=== PATIENT | female | born 1965 | race Caucasian/White ===

== ENCOUNTER → 2016-09-25 | Outpatient (CLI) | payer OTHER | LOC: FIMAGING 16:12 | DX: Z12.31 Encounter for screening mammogram for malignant neoplasm of breast (principal) | CPT/HCPCS: G0202 ==

== ENCOUNTER → 2017-10-20 | Outpatient (CLI) | payer OTHER | LOC: FIMAGING 16:18 | PROVIDERS: ATTEND Physician Assistant | DX: Z12.31 Encounter for screening mammogram for malignant neoplasm of breast (principal); Z80.3 Family history of malignant neoplasm of breast ==

== ENCOUNTER 2018-09-21 13:43 | Observation (INO) | payer OTHER ==
[2018-09-21] MEDS ORDERED: NS 1,000 ML IV ONE ×2 (14:00→18:02)
[2018-09-21 14:13] LABS: PLATELET COUNT 257 10^3/uL (150-400)
--- NOTE | 2018-09-21 14:24 | EDPHY ---
H & P Stated Complaint: Syncope, epigastric pain, vomiting Time Seen by Provider: 09/21/18 13:59 HPI/ROS: CHIEF COMPLAINT: Syncope, abdominal pain, vomiting HISTORY OF PRESENT ILLNESS: The patient presents the ED after she developed nausea and vomiting which precipitated a syncopal episode at work. The patient did have some antecedent epigastric discomfort. She did have some vague antecedent today shins. Patient reports that she has been taking meloxicam since June for a labral tear. The patient denies any melena or hematemesis. The patient has no prior history of syncope. She does have a high calcium score and a significant family history of coronary artery disease. The patient denies any exertional chest pain or shortness of breath. Patient currently states that she is feeling better. She was brought in by paramedics having received IV fluids. REVIEW OF SYSTEMS: A comprehensive 10 point review of systems is otherwise negative aside from elements mentioned in the history of present illness. Source: Patient Exam Limitations: No limitations - Personal History LMP (Females 10-55): Hysterectomy Current Tetanus Diphtheria and Acellular Pertussis (TDAP): Yes - Medical/Surgical History Hx Asthma: No Hx Chronic Respiratory Disease: No Hx Diabetes: No Hx Cardiac Disease: No Hx Renal Disease: No Hx Cirrhosis: No Hx Alcoholism: No Hx HIV/AIDS: No Hx Splenectomy or Spleen Trauma: No Other PMH: Hysterectomy, depression - Social History Smoking Status: Never smoked - Physical Exam Exam: General Appearance: Alert, no distress Eyes: Pupils equal and round no pallor or injection ENT, Mouth: Mucous membranes moist Respiratory: There are no retractions, lungs are clear to auscultation Cardiovascular: Regular rate and rhythm Gastrointestinal: Minimal epigastric tenderness, no peritoneal signs, normal bowel sounds Neurological: A&O, normal motor function, normal sensory exam, normal cranial nerves Skin: Warm and dry, no rashes Musculoskeletal: Neck is supple nontender Extremities: symmetrical, full range of motion Psychiatric: Patient is oriented X 3, there is no agitation Constitutional: Initial Vital Signs Temperature (C) 36.8 C 09/21/18 13:50 Heart Rate 78 09/21/18 13:50 Respiratory Rate 16 09/21/18 13:50 Blood Pressure 117/83 H 09/21/18 13:50 O2 Sat (%) 99 09/21/18 13:50 O2 Delivery Mode Room Air Allergies/Adverse Reactions: hydrocodone Allergy (Verified 10/17/13 23:16) Home Medications: Medication Instructions Recorded Escitalopram Oxalate [Lexapro 10 10/17/13 MG (RX)] Estrogen,Con/M-Progest Acet 10/17/13 [Prempro 0.3 mg-1.5 mg Tablet] Medical Decision Making - Diagnostics EKG Interpretation: EKG: Complete interpretation has been separately recorded in the [facility] archive. Summary impression: Sinus rhythm, no ischemic changes noted ED Course/Re-evaluation: Patient presents to the ED after a presyncopal episode in the setting of vomiting. Patient is in no acute distress upon arrival. She had minimal epigastric tenderness. Her EKG demonstrated no evidence of arrhythmia. Her troponin is normal. Laboratory testing does demonstrate mild anemia. The patient did have a elevated BUN consistent with dehydration. The patient is not had any symptoms of melena. The patient has no additional acute complaints or findings. The patient had an IV established. She received a L of normal saline. I re-evaluated the patient at 5:15 p.m.. She is feeling better. Her abdominal examination is benign. Patient has been informed that she is slightly anemic. She will follow up with her primary care provider for a repeat CBC in the coming weeks. She has been told to be on the lookout the development of any melanotic stool. Patient is also been advised to stop taking NSAIDs and begin taking Tylenol. Patient will be discharged home with a prescription for Zofran. She is given customary aftercare instructions and return precautions. Differential Diagnosis: Differential diagnosis considered includes vasovagal episode, peptic ulcer disease, dehydration, critical anemia, metabolic derangement - Data Points Laboratory Results: Laboratory Results 09/21/18 13:45 09/21/18 13:45 09/21/18 09/21/18 09/21/18 13:45 13:45 13:45 WBC 7.50 10^3/uL 10^3/uL (3.80-9.50) RBC 3.61 10^6/uL L 10^6/uL (4.18-5.33) Hgb 11.6 g/dL L g/dL (12.6-16.3) Hct 34.5 % L % (38.0-47.0) MCV 95.6 fL fL (81.5-99.8) MCH 32.1 pg pg (27.9-34.1) MCHC 33.6 g/dL g/dL (32.4-36.7) RDW 11.9 % % (11.5-15.2) Plt Count 257 10^3/uL 10^3/uL (150-400) MPV 9.6 fL fL (8.7-11.7) Neut % (Auto) 53.2 % % (39.3-74.2) Lymph % (Auto) 38.0 % % (15.0-45.0) [place] % (Auto) 6.3 % % (4.5-13.0) Eos % (Auto) 1.7 % % (0.6-7.6) Baso % (Auto) 0.5 % % (0.3-1.7) Nucleat RBC Rel Count 0.0 % % (0.0-0.2) Absolute Neuts (auto) 3.99 10^3/uL 10^3/uL (1.70-6.50) Absolute Lymphs (auto) 2.85 10^3/uL 10^3/uL (1.00-3.00) Absolute Monos (auto) 0.47 10^3/uL 10^3/uL (0.30-0.80) Absolute Eos (auto) 0.13 10^3/uL 10^3/uL (0.03-0.40) Absolute Basos (auto) 0.04 10^3/uL 10^3/uL (0.02-0.10) Absolute Nucleated RBC 0.00 10^3/uL 10^3/uL (0-0.01) Immature Gran % 0.3 % % (0.0-1.1) Immature Gran # 0.02 10^3/uL 10^3/uL (0.00-0.10) Sodium 137 mEq/L mEq/L (135-145) Potassium 4.0 mEq/L mEq/L (3.5-5.2) Chloride 104 mEq/L mEq/L (97-110) Carbon Dioxide 25 mEq/l mEq/l (22-31) Anion Gap 8 mEq/L mEq/L (6-14) BUN 31 mg/dL H mg/dL (7-23) Creatinine 0.7 mg/dL mg/dL (0.6-1.0) Estimated GFR > 60 Glucose 167 mg/dL H mg/dL (70-100) Calcium 8.6 mg/dL mg/dL (8.5-10.4) Total Bilirubin 0.3 mg/dL mg/dL (0.1-1.4) Conjugated Bilirubin 0.3 mg/dL mg/dL (0.0-0.5) Unconjugated Bilirubin 0.0 mg/dL mg/dL (0.0-1.1) AST 20 IU/L IU/L (14-46) ALT 19 IU/L IU/L (9-52) Alkaline Phosphatase 75 IU/L IU/L (38-126) Troponin I < 0.012 ng/mL ng/mL (0.000-0.034) Total Protein 6.2 g/dL L g/dL (6.3-8.2) Albumin 3.8 g/dL g/dL (3.5-5.0) Lipase 121 IU/L IU/L (23-300) Medications Given: Discontinued Medications Sodium Chloride (Ns) 1,000 mls @ 0 mls/hr IV EDNOW ONE; Wide Open PRN Reason: Protocol Stop: 09/21/18 14:01 Last Admin: 09/21/18 14:37 Dose: 1,000 mls Departure - Departure Disposition: Home, Routine, Self-Care Clinical Impression: Vasovagal syncopes, Vomiting, Anemia Condition: Good Instructions: Syncope (ED) Additional Instructions: 1. Zofran as needed for nausea. 2. Please have your blood count recheck with your primary care provider in the next 1-2 weeks. Return to the ED for any vomiting of blood, black or tarry stools. I do recommend stopping meloxicam beginning Tylenol. 3. Return to the emergency department for any worsening abdominal pain, recurrent passing out, uncontrolled vomiting or other concerns. Referrals: Lroi Pierre PA [Primary Care Provider] - As per Instructions
--- NOTE | 2018-09-21 14:53 | CPEKG ---
Test Reason : OPEN Blood Pressure : / mmHG Vent. Rate : 081 BPM Atrial Rate : 080 BPM P-R Int : 143 ms QRS Dur : 077 ms QT Int : 403 ms P-R-T Axes : 053 084 064 degrees QTc Int : 468 ms Sinus rhythm Confirmed by Gennaro Vaughan ([id number]) on 09/21/2018 2:52:47 PM Referred By: Gennaro Vaughan Confirmed By:Gennaro Vaughan
[2018-09-21 18:27] LABS: PLATELET COUNT 210 10^3/uL (150-400)
[2018-09-21] MEDS ORDERED: PANTOPRAZOLE SODIUM 40 MG VIAL IVP ONE (19:15)
[2018-09-21] MEDS ORDERED: ACETAMINOPHEN 325 MG TAB PO PRN (20:24)
[2018-09-21] MEDS ORDERED: ONDANSETRON 4 MG/2 ML VIAL IVP PRN (20:24)
[2018-09-21] MEDS ORDERED: ONDANSETRON DISINTEGRATING 4 MG TAB PO PRN (20:24)
--- NOTE | 2018-09-21 20:24 | PDGENHP ---
History and Physical - Chief Complaint Epigastric pain, nausea, syncope - History of Present Illness Leidy Moreno is a 53 yo F with a PMHx of anxiety who presents to ED for epigastric pain, nausea, and presyncope. She reports that over the past weekend she was experiencing a "sour stomach" which she described as a mild discomfort that would come and go. It was not associated with nausea or vomiting. She was at work today when she had an episode of nausea and vomiting then experienced a presyncopal episode. She describes the episode as feeling so lightheaded she collapsed but did not lose consciousness. She also had epigastric discomfort at that time. She denies any melena or hematemesis as well as chest pain, SOB, headache, d/c, f/c, edema. Patient was going to be discharged from ED when she had a another episode of epigastric pain, nausea, and presyncope. History Information - Allergies/Home Medication List Allergies/Adverse Reactions: hydrocodone Allergy (Verified 10/17/13 23:16) Home Medications: Escitalopram Oxalate [Lexapro 10 MG (RX)] 10 mg PO DAILY 10/17/13 [Last Taken 11:00] Aspirin EC [Aspirin EC 81 mg (*)] 81 mg PO HS 09/21/18 [Last Taken 09/20/18] Herbals/Supplements -Info Only 1 ea PO BID 09/21/18 [Last Taken 09/20/18] Meloxicam 15 mg PO DAILY 09/21/18 [Last Taken 09/21/18 11:00] Niacin [Niacin 500 mg (*)] 500 mg PO HS 09/21/18 [Last Taken 09/20/18] clonazePAM [Klonopin (*)] 0.25 mg PO DAILY PRN 09/21/18 [Last Taken 09/21/18] I have personally reviewed and updated: family history, medical history, social history, surgical history - Past Medical History psychiatric history - Surgical History Reports: no pertinent surgical hx - Family History Positive for: CAD - Social History Smoking Status: Never smoked Review of Systems Review of Systems: ROS: 10pt was reviewed & negative except for what was stated in HPI & below Physical Exam Physical Exam: Temp Pulse Resp BP Pulse Ox 36.2 C 95 18 134/87 H 97 09/21/18 15:28 09/21/18 18:47 02/20/19 18:47 09/21/18 18:47 09/21/18 18:47 Constitutional: no apparent distress Eyes: PERRL Ears, Nose, Mouth, Throat: moist mucous membranes Cardiovascular: regular rate and rhythym Respiratory: no respiratory distress Gastrointestinal: soft, non-tender abdomen Skin: warm Musculoskeletal: full muscle strength Neurologic: AAOx3 Psychiatric: interacting appropriately Lab Data & Imaging Review 09/21/18 18:02 09/21/18 13:45 WBC 6.71 10^3/uL (3.80-9.50) 09/21/18 18:02 RBC 3.32 10^6/uL (4.18-5.33) L 09/21/18 18:02 Hgb 10.4 g/dL (12.6-16.3) L 09/21/18 18:02 Hct 30.6 % (38.0-47.0) L 09/21/18 18:02 MCV 92.2 fL (81.5-99.8) 09/21/18 18:02 MCH 31.3 pg (27.9-34.1) 09/21/18 18:02 MCHC 34.0 g/dL (32.4-36.7) 09/21/18 18:02 RDW 12.0 % (11.5-15.2) 09/21/18 18:02 Plt Count 210 10^3/uL (150-400) 09/21/18 18:02 MPV 9.2 fL (8.7-11.7) 09/21/18 18:02 Neut % (Auto) 71.5 % (39.3-74.2) 09/21/18 18:02 Lymph % (Auto) 24.9 % (15.0-45.0) 09/21/18 18:02 [place] % (Auto) 3.0 % (4.5-13.0) L 09/21/18 18:02 Eos % (Auto) 0.1 % (0.6-7.6) L 09/21/18 18:02 Baso % (Auto) 0.4 % (0.3-1.7) 09/21/18 18:02 Nucleat RBC Rel Count 0.0 % (0.0-0.2) 09/21/18 18:02 Absolute Neuts (auto) 4.79 10^3/uL (1.70-6.50) 09/21/18 18:02 Absolute Lymphs (auto) 1.67 10^3/uL (1.00-3.00) 09/21/18 18:02 Absolute Monos (auto) 0.20 10^3/uL (0.30-0.80) L 09/21/18 18:02 Absolute Eos (auto) 0.01 10^3/uL (0.03-0.40) L 09/21/18 18:02 Absolute Basos (auto) 0.03 10^3/uL (0.02-0.10) 09/21/18 18:02 Absolute Nucleated RBC 0.00 10^3/uL (0-0.01) 09/21/18 18:02 Immature Gran % 0.1 % (0.0-1.1) 09/21/18 18:02 Immature Gran # 0.01 10^3/uL (0.00-0.10) 09/21/18 18:02 Sodium 137 mEq/L (135-145) 09/21/18 13:45 Potassium 4.0 mEq/L (3.5-5.2) 09/21/18 13:45 Chloride 104 mEq/L (97-110) 09/21/18 13:45 Carbon Dioxide 25 mEq/l (22-31) 09/21/18 13:45 Anion Gap 8 mEq/L (6-14) 09/21/18 13:45 BUN 31 mg/dL (7-23) H 09/21/18 13:45 Creatinine 0.7 mg/dL (0.6-1.0) 09/21/18 13:45 Estimated GFR > 60 09/21/18 13:45 Glucose 167 mg/dL (70-100) H 09/21/18 13:45 Calcium 8.6 mg/dL (8.5-10.4) 09/21/18 13:45 Total Bilirubin 0.3 mg/dL (0.1-1.4) 09/21/18 13:45 Conjugated Bilirubin 0.3 mg/dL (0.0-0.5) 09/21/18 13:45 Unconjugated Bilirubin 0.0 mg/dL (0.0-1.1) 09/21/18 13:45 AST 20 IU/L (14-46) 09/21/18 13:45 ALT 19 IU/L (9-52) 09/21/18 13:45 Alkaline Phosphatase 75 IU/L (38-126) 09/21/18 13:45 Troponin I < 0.012 ng/mL (0.000-0.034) 09/21/18 13:45 Total Protein 6.2 g/dL (6.3-8.2) L 09/21/18 13:45 Albumin 3.8 g/dL (3.5-5.0) 09/21/18 13:45 Lipase 121 IU/L (23-300) 09/21/18 13:45 Stool Occult Bld Scrn POSITIVE (NEGATIVE) H 09/21/18 19:00 Assessment & Plan Assessment: UGIB - Presenting with epigastric pain, nausea, presyncope - No hematemesis, melena, or hematochezia - Has been taking Meloxicam for labral tear - Occult stool is heme positive on admission - Hgb 11.6, decreased to 10.4 since admission, no baseline known - IV PPI started, will continue Pantoprazole 40 mg IV BID - Continue to monitor H/H - GI consulted in ED, will see in the AM for possible EGD Anemia (Acute) - In setting of GIB, management as above - Will check Fe studies, B12/Folate to further evaluate - Continue to monitor, transfuse H/H <7/20 Preyncope (Acute) - In setting of above - S/p IVF in ED - Will continue to monitor on telemetry Depression - Continue home Lexapro and Klonopin FEN: IVF, NPO after midnight DVT PPx: Holding in setting of possible GIB Code: FULL Dispo: Admit to Observation
[2018-09-21] MEDS ORDERED: clonazePAM 0.5 MG TAB PO PRN (20:34)
[2018-09-21] MEDS ORDERED: PANTOPRAZOLE SODIUM 40 MG VIAL IVP SCH (21:00)
[2018-09-21] MEDS ORDERED: ASPIRIN EC 81 MG TAB PO SCH (21:00)
[2018-09-21] MEDS: NIACIN 500 MG TAB PO SCH (22:51)
[2018-09-22 05:41] LABS: PLATELET COUNT 193 10^3/uL (150-400)
[2018-09-22] MEDS ORDERED: NS 1,000 ML IV SCH (06:15)
[2018-09-22] MEDS ORDERED: NS 500 ML IV ONE (06:15)
--- NOTE | 2018-09-22 07:09 | PDCONSULT ---
Underpresser Hand Note: [email or web address] p: f: REFERRING PHYSICIAN: I was asked to see the patient in consultation by Dr. James Kumar for a chief complaint of hematemesis, iron deficiency anemia. HISTORY OF PRESENT ILLNESS: Leidy Moreno is a 53 year old female with a history of anxiety who presented to the [facility] emergency department for epigastric pain, nausea and presyncope on 09/21/2018. She developed an episode of nausea and vomiting and then experienced dizziness. She felt very lightheaded but she did not lose consciousness. She also started to have epigastric pain as well. The emesis that she had is described as dark and coffee-ground. She still feels faint this morning. She has been taking meloxicam for a right labrum tear. No further vomiting. She denies melena, bright red blood in stool, vaginal or urinary bleeding.She has never had a screening colonoscopy. PAST MEDICAL HISTORY: Depression, Anxiety, history of vasovagal syncope, new diagnosis of iron deficiency anemia, vomiting PAST SURGICAL HISTORY: None HOME MEDICATIONS: Aspirin 81 mg daily, meloxicam 15 mg by mouth daily, herbals twice a day, Lexapro 10 mg by mouth daily, niacin 500 mg by mouth daily at bedtime, clonazepam 0.25 mg by mouth daily, O transit time 4 mg by mouth every 4 when necessary INPATIENT MEDICATIONS: Tylenol 650 by mouth every 4 when necessary, clonazepam 0.25 mg by mouth daily when necessary, escitalopram 10 mg by mouth daily, niacin 500 mg by mouth daily at bedtime, pantoprazole 40 mg IV twice a day ALLERGIES: Hydrocodone FAMILY HISTORY: No family history of peptic ulcer bleeding SOCIAL HISTORY Non smoker No Alcohol use ROS I have performed a comprehensive review of systems, which is negative except for pertinent positives and/or pertinent negatives as noted above in the HPI Physical exam: Vitals 0400 36.9 HR 104 BP 90/49 RR 16 94% on RA CONSTITUTIONAL: alert, unwell appearing, in no distress MENTAL STATUS: alert, oriented to person, place and time PSYCH: mood appropriate for affect EYES: pupils equal and reactive extra ocular eye movements intact EARS: right and left ear normal NOSE: normal and patent, no erythema, discharge or polyps MOUTH: mucous membranes moist, pharynx normal without lesions, Mallampati I HEAD: normal NECK: supple, no significant adenopatchy CHEST: clear to auscultation, no wheezes, rales or rhonchi, symmetric air entry CARDIOVASCULAR: normal rate, regular rhythm, normal S1,S2, no murmurs, rubs, clicks or gallops GASTROINTESTINAL: soft, non tender, non distended, no masses or organomegaly NEUROLOGICAL: alert, oriented, normal speech, no focal findings or movement disorder noted. No asterixis. MUSCULOSKELETAL: no joint tenderness, deformity or swelling SKIN: normal coloration and turgor, no rashes, no suspicious skin lesions CURRENT DATA: LABS: 09/21/2018 CBC: WBC 6.7 Hgb 10 platelets 210 Iron saturation 12%, ferritin 24 Positive occult stool B12 242 Folate 19.23 Date 09/22/2018 WBC 8.4 hemoglobin 9.6 platelets 193 ASSESSMENT: Leidy Moreno is a 53 year old female with a history of anxiety who presents with coffee ground emesis and iron deficiency anemia. Likely this represents an upper gastrointestinal bleed from esophagitis/gastritis/duodenitis , peptic ulcer disease, H. pylori infection, Crohn's disease. Clinical history and labs do not support a portal hypertension because of this upper gastrointestinal bleed. Iron deficiency anemia may need to be investigated further with a colonoscopy if there is no source of bleeding on the upper endoscopy today. RECOMMENDATIONS: -Keep patient NPO. Ensure large bore IV access. -Monitor H/H for now and transfuse per protocol -PPI IV BID okay for now -Will plan on urgent endoscopy, further recommendations to follow. -Thank you for this consultation Sincerely, Peri Leonard MD [facility]
--- NOTE | 2018-09-22 08:07 | CPEKG ---
Test Reason : OPEN Blood Pressure : / mmHG Vent. Rate : 087 BPM Atrial Rate : 087 BPM P-R Int : 146 ms QRS Dur : 084 ms QT Int : 370 ms P-R-T Axes : 081 087 -02 degrees QTc Int : 445 ms Sinus rhythm Confirmed by Jimmie Sheth ([id number]) on 09/22/2018 8:07:29 AM Referred By: James Kumar Confirmed By:Jimmie Sheth
[2018-09-22] MEDS ORDERED: LR 1,000 ML IV ONE (08:08)
--- NOTE | 2018-09-22 08:08 | PDANEPAE ---
ANE Past Medical History - Cardiovascular History Hx Hypertension: No Hx Arrhythmias: No Cardiovascular History Comment: Strong Family History of CT. She had a high calcium score on a scan. But they decided a Stress test was not warrented because she is an active runner. - Pulmonary History Hx COPD: No Hx Asthma/Reactive Airway Disease: No Hx Oxygen in Use at Home: No Hx Sleep Apnea: No - Endocrine History Hx Diabetes: No Hypothyroid: No - Renal History Hx Renal Disorders: No - Liver History Hx Hepatic Disorders: No - Neurological & Psychiatric Hx Hx Neurological and Psychiatric Disorders: Yes Neurological / Psychiatric History Comment: Anxiety - Congenital Disorder History Hx Congenital Disorders: No - GI History Hx Gastrointestinal Disorders: Yes Gastrointestinal History Comment: epigastric pain with coffee ground emesis. HGB around 9-10 - Chronic Pain History Chronic Pain: No - Surgical History Prior Surgeries: Animal [employer] Surgeries. Hysterectomy ANE Review of Systems Review of Systems: ANE Patient History - Allergies Allergies/Adverse Reactions: hydrocodone Allergy (Verified 10/17/13 23:16) - Home Medications Home Medications: Escitalopram Oxalate [Lexapro 10 MG (RX)] 10 mg PO DAILY 10/17/13 [Last Taken 11:00] Aspirin EC [Aspirin EC 81 mg (*)] 81 mg PO HS 09/21/18 [Last Taken 09/20/18] Herbals/Supplements -Info Only 1 ea PO BID 09/21/18 [Last Taken 09/20/18] Meloxicam 15 mg PO DAILY 09/21/18 [Last Taken 09/21/18 11:00] Niacin [Niacin 500 mg (*)] 500 mg PO HS 09/21/18 [Last Taken 09/20/18] clonazePAM [Klonopin (*)] 0.25 mg PO DAILY PRN 09/21/18 [Last Taken 09/21/18] - Smoking Hx Smoking Status: Never smoked ANE Labs/Vital Signs - Labs Result Diagrams: 09/22/18 05:16 09/22/18 05:16 - Vital Signs Blood Pressure: 90/49 Heart Rate: 104 Respiratory Rate: 16 O2 Sat (%): 94 Height: 162.56 cm Weight: 61.235 kg ANE Physical Exam - Airway Neck exam: FROM Mallampati Score: Class 2 Mouth exam: normal dental/mouth exam - Pulmonary Pulmonary: no respiratory distress, no rales or rhonchi, clear to auscultation - Cardiovascular Cardiovascular: regular rate and rhythym, no murmur, rub, or gallop - ASA Status ASA Status: III ANE Anesthesia Plan Anesthesia Plan: GA with mask Total IV Anesthesia: Yes
--- NOTE | 2018-09-22 08:08 | POSTANESTH ---
Post Anesthetic Evaluation Cardiovascular Status: Normal, Stable Respiratory Status: Normal, Stable Level of Consciousness/Mental Status: Can Participate in Eval Pain Control: Adequate, Prn Tx Ordered Nausea/Vomiting Control: Adequate, Prn Tx Ordered Complications Possibly Related to Anesthesia: None Noted
[2018-09-22] MEDS ORDERED: LIDOCAINE 2% 5 ML SDV ONE (08:43)
[2018-09-22] MEDS ORDERED: PROPOFOL/EMULSION 500 MG/50 ML BOTTLE IV ONE (08:43)
--- NOTE | 2018-09-22 09:02 | PDGENHP ---
History & Physical Chief Complaint: iron deficiency anemia, hematemesis History of Present Illness: 53 year old NSAID use presenting with anemia, ASA II , Mallampati 1 Relevant Physical Exam: Alert and oriented x 3, Skin pale, Abdomen soft non tender Cardiorespiratory Assessment: RRR, CTAB
--- NOTE | 2018-09-22 09:09 | GIREPORT ---
[facility] - Endoscopy Department Patient Name: Leidy Moreno Procedure Date: 09/22/2018 7:13 AM Patient Type: Inpatient Attending MD/ ER Physician: Peri Leonard MD Procedure: Upper GI endoscopy Indications: Iron deficiency anemia, Hematemesis Patient Profile: Right hip labrum tear on Meloxicam. Providers: Peri Leonard MD Medicines: Monitored Anesthesia Care Complications: No immediate complications. Description of Procedure: After obtaining informed consent, the endoscope was passed under direct vision. Throughout the procedure, the patient's blood pressure, pulse, and oxygen saturations were monitored continuously. The Endoscope was intro duced through the mouth, and advanced to the second part of duodenum. The [facility] er GI endoscopy was accomplished without difficulty. The patient tolerated th e procedure well. Findings: The examined esophagus was normal. Diffuse moderate inflammation characterized by erosions and erythema wa s found in the entire examined stomach. Biopsies were taken with a cold forceps for histology. Estimated blood loss was minimal. One non-bleeding cratered gastric ulcer with no stigmata of bleeding wa s found in the gastric antrum. The lesion was 5 mm in largest dimension. One non-bleeding cratered duodenal ulcer with no stigmata of bleeding w as found in the duodenal bulb. The lesion was 8 mm in largest dimension. The first portion of the duodenum and second portion of the duodenum we re normal. Biopsies for histology were taken with a cold forceps for evalu ation of celiac disease. Estimated blood loss was minimal. Estimated Blood Loss: Estimated blood loss was minimal. Post Op Diagnosis: - Normal esophagus. - Gastritis. Biopsied. - Non-bleeding gastric ulcer with no stigmata of bleeding. - One non-bleeding duodenal ulcer with no stigmata of bleeding. - Normal first portion of the duodenum and second portion of the duoden um. Biopsied. Recommendation: - [facility]. - Advance diet as tolerated. - May require inpatient iron supplementation (IV) to help with dizzines s and fainting symptoms. - Stop aspirin and NSAID for now. - Use a proton pump inhibitor PO BID for 12 weeks then daily if continu es to use NSAIDs. - Await results of biopsies for H pylori and Celiac disease. - Repeat upper endoscopy in 12 weeks to check healing. Chad for ASC pro pofol at our endoscopy center. - Also advise screening colonoscopy when has repeat endoscopy in 12 wee ks. [facility] for ASC propofol at our endoscopy center. - Thank you for allowing me to participate in the care of this patient. Attending Participation: I personally performed the entire procedure. Peri Leonard MD Peri Leonard MD 09/22/2018 9:08:40 AM This report has been signed electronicallyPeri Leonard MD Number of Addenda: 0 Note Initiated On: 09/22/2018 7:13 AM [email or web address]}
[2018-09-22] MEDS ORDERED: PROMETHAZINE HCL 25 MG/ML INJ IVP PRN (09:10)
[2018-09-22] MEDS ORDERED: LR 500 ML IV PRN (09:10)
[2018-09-22] MEDS ORDERED: NALOXONE HCL 0.4 MG/ML INJ IVP PRN (09:10)
[2018-09-22] MEDS ORDERED: fentaNYL 100 MCG/2 ML INJ IVP PRN (09:10)
[2018-09-22] MEDS ORDERED: NS 500 ML IV PRN (09:10)
[2018-09-22] MEDS ORDERED: ONDANSETRON 4 MG/2 ML VIAL IVP PRN (09:10)
--- NOTE | 2018-09-22 09:26 | ASMTCMCOM ---
CM Note CM Note Notes: Patient admitted with abd pain and syncopal episode admitted to r/o UGIB. She is s/p upper endoscopy today. GI following. Patient is normally independent and employed. She lives alone. I don't anticipate any d/c needs. CM available if this changes. Current CM Discharge plan: home independent Date Signed: 09/22/2018 09:25 AM Electronically Signed By:Shelby Ly RN
[2018-09-22] MEDS: ESCITALOPRAM OXALATE 10 MG TAB PO SCH (10:02)
[2018-09-22] MEDS: PANTOPRAZOLE SODIUM 40 MG VIAL IVP SCH ×2 (10:03→20:05)
--- NOTE | 2018-09-22 14:23 | HOSPPROG ---
Hospitalist Progress Note Assessment/Plan: #UGIB -Endoscopy with no active bleeding. Was consistent with Gastritis and Duodenal Ulcer with recent bleeding #Gastritis, Duodenal Ulcer #Acute blood loss anemia #Iron deficiency anemia #Generalized Weakness #Presyncope likely due to anemia Plan: Transfuse 1 unit advance diet PPI BID Serial H/H to ensure no further bleeding monitor overnight IV iron replacement No Aspirin or NSAIDs for a few weeks Subjective: still feels weak. no emesis or reported ongoing bleeding. Objective: Vital Signs Temp Pulse Resp BP Pulse Ox 37.1 C 88 14 99/65 L 96 09/22/18 11:49 09/22/18 11:49 09/22/18 11:49 09/22/18 11:49 09/22/18 11:49 Laboratory Results 09/22/18 11:46 09/22/18 05:16 09/21/18 09/22/18 09/23/18 05:59 05:59 05:59 Intake Total 2900 600 Output Total 0 Balance 2900 600 - Physical Exam Constitutional: no apparent distress Eyes: PERRL Ears, Nose, Mouth, Throat: moist mucous membranes, hearing normal Cardiovascular: regular rate and rhythym, no murmur, rub, or gallop Respiratory: no respiratory distress Gastrointestinal: normoactive bowel sounds, soft, non-tender abdomen Genitourinary: no bladder fullness Skin: warm Neurologic: AAOx3 Psychiatric: interacting appropriately, not anxious, not encephalopathic Lymph, Heme, Immunologic: No petechiae ICD10 Worksheet Patient Problems: Problems Problem Status Onset Anemia Acute Vasovagal syncopes Acute Vomiting Acute
[2018-09-22] MEDS ORDERED: SODIUM FERRIC GLUCONAT/SUCROSE 125 MG in NS 100 ML IV SCH ×2 (14:30→15:00)
--- NOTE | 2018-09-22 15:14 | PDMN ---
Medical Necessity Medical necessity: [facility] anemia, iron deficiency or unspecified - pt presents with epigastric pain, N/ presyncope, dizziness, hematemesis, - + stool occult bld- pt had endoscopy , with H/H dropping ( 11.6 / 34.5 down to 8.7/ 26.2) , further monitoring and tx- one unit PRBC given- IV iron, pt still with gen. weakness, status changed to INPT 09/22/18
[2018-09-22] MEDS: NIACIN 500 MG TAB PO SCH (20:05)
[2018-09-23] MEDS: ESCITALOPRAM OXALATE 10 MG TAB PO SCH (08:43)
[2018-09-23] MEDS: PANTOPRAZOLE SODIUM 40 MG VIAL IVP SCH (08:48)
--- NOTE | 2018-09-23 09:32 | SOAPPROG ---
SOAP Progress Note Assessment/Plan: Assessment:53-year-old female taking aspirin and NSAID presenting with an upper GI bleed from a gastric ulcer and a duodenal ulcer. She is status post endoscopically without intervention given clean-based ulcers. She was having significant anemia related symptoms and received a blood transfusion yesterday with improvement in the symptoms. Plan: 1.Advance diet as tolerated 2.PPI twice a day for the next 12 weeks and then daily 3.Repeat ASC endoscopy with Dr. Leonard in 12 weeks to assess for healing 4.We will call patient with biopsies performed 5.Okay to discharge to home Thank you for this consultation, Peri Leonard MD 09/23/18 09:31 Subjective: melenic stool last night, Hgb stable after transfusion, no nauseated or dizzi, belly feel sore Objective: Vital Signs Temp Pulse Resp BP Pulse Ox 36.9 C 94 15 109/74 94 09/23/18 07:51 09/23/18 08:34 09/23/18 07:51 09/23/18 08:34 09/23/18 07:51 Laboratory Results 09/23/18 04:40 09/22/18 09/23/18 09/24/18 05:59 05:59 05:59 Intake Total 1342 Balance 1342 Physical Exam - Physical Exam General Appearance: alert, no apparent distress Respiratory: chest non-tender, lungs clear, normal breath sounds Cardiac/Chest: regular rate, rhythm Abdomen: normal bowel sounds, non-tender, soft Skin: normal color Neuro/Psych: alert, normal mood/affect, oriented x 3 ICD10 Worksheet Patient Problems: Problems Problem Status Onset Anemia Acute Vasovagal syncopes Acute Vomiting Acute
[2018-09-23 11:43] VITALS: BP 130/84
--- NOTE | 2018-09-23 15:56 | PDDCSUM ---
Discharge Summary Discharge Summary: 53 YO FEMALE ON ASPIRIN and NSAIDs admitted for UGIB and acute blood loss anemia. GI was consulted and endoscopy performed with results per below no further bleeding She did require 1 unit PRBC Did also require IV iron x 2 and now will start oral iron replacement DDX: #UGIB -Endoscopy with no active bleeding. Was consistent with Gastritis and Duodenal Ulcer with recent bleeding #Gastritis, Duodenal Ulcer #Acute blood loss anemia #Iron deficiency anemia #Generalized Weakness #Presyncope likely due to anemia F/U: with pcp next week with GI in 2-4 weeks to determine f/u endoscopy as well as results of biopsies exam: nad aaox3 rrr cta b s/nt/nd meds: see med rec total time spent on d/c is 35 mins
--- NOTE | 2018-09-23 16:19 | ASDISCHSUM ---
Discharge Information Plan Status:Home with No Needs Medically Cleared to Leave:09/22/2018 Discharge Date:09/23/2018 03:23 PM CM D/C Disposition:Home, Routine, Self-Care ADT D/C Disposition:Home, Routine, Self-Care Projected Discharge Date:09/23/2018 12:00 AM Transportation at D/C:Friend Discharge Delay Reason: Follow-Up Date:09/23/2018 12:00 AM Discharge Slot:2 - 12:01 pm - 18:00 pm Final Diagnosis:Upper Gastric Intestinal Bleeding/Acute Blood loss anemia Placement Information Patient Contact Information Contact Name:NORA Relationship:Sister Address: City: [facility] Phone: [facility] Code: Email: Financial Information Financial Class:[employer] Primary Plan Desc:[facility] Primary Plan Number:[id number] Secondary Plan Desc: Secondary Plan Number: Assessment Information [facility] CM Progress Note CM Note CM Note Notes: Patient admitted with abd pain and syncopal episode admitted to r/o UGIB. She is s/p upper endoscopy today. GI following. Patient is normally independent and employed. She lives alone. I don't anticipate any d/c needs. CM available if this changes. Current CM Discharge plan: home independent Date Signed: 09/22/2018 09:25 AM Electronically Signed By:Shelby Ly RN Case Management Discharge Plan Note Case Management Discharge Discharge Order Complete? Answers: Yes Patient to Obtain Answers: via Family Medications Transportation Arranged Answers: Family/Friends Discharge Comments Notes: Patient discussed in clinical rounds, discharge today to home with family/friends. Intervention Information
== END 2018-09-23 15:23 | disposition home or self-care (01) ==
LOC: EDUNIT# → F1N 21:51 → INTOOBSV 09-22 14:11 → OBSVTOIN 09-22 14:11
PROVIDERS: ADMIT Internal Medicine; ATTEND Family Medicine
PROC: 30233N1 Transfusion of Nonautologous Red Blood Cells into Peripheral Vein, Percutaneous Approach (ICD-10-PCS; 2018-09-21)
PROC: 0DB68ZX Excision of Stomach, Via Natural or Artificial Opening Endoscopic, Diagnostic (ICD-10-PCS; principal; 2018-09-22 08:15)
PROC: 0DB98ZX Excision of Duodenum, Via Natural or Artificial Opening Endoscopic, Diagnostic (ICD-10-PCS; principal; 2018-09-22 08:15)
DX: K92.2 Gastrointestinal hemorrhage, unspecified (principal); D62 Acute posthemorrhagic anemia; K26.9 Duodenal ulcer, unspecified as acute or chronic, without hemorrhage or perforation; K25.9 Gastric ulcer, unspecified as acute or chronic, without hemorrhage or perforation; R55 Syncope and collapse; E86.9 Volume depletion, unspecified; R10.13 Epigastric pain; R53.1 Weakness; R11.2 Nausea with vomiting, unspecified; K29.70 Gastritis, unspecified, without bleeding; F32.9 Major depressive disorder, single episode, unspecified; F41.9 Anxiety disorder, unspecified; Z79.82 Long term (current) use of aspirin; Z79.1 Long term (current) use of non-steroidal anti-inflammatories (NSAID); Z82.49 Family history of ischemic heart disease and other diseases of the circulatory system; Z90.710 Acquired absence of both cervix and uterus
CPT/HCPCS: 43239; 93005; 96361; 96374; 99285; G0378; P9016; 82607-90; J2704; J2916

== ENCOUNTER → 2018-11-01 | Outpatient (CLI) | payer OTHER | LOC: FIMAGING 16:09 | PROVIDERS: ATTEND Physician Assistant | DX: Z12.31 Encounter for screening mammogram for malignant neoplasm of breast (principal); Z80.3 Family history of malignant neoplasm of breast ==